=== PATIENT | female | born 1985 | race Caucasian/White ===

== ENCOUNTER → 2016-11-21 | Outpatient (CLI) | payer OTHER ==
--- NOTE | 2016-11-21 10:40 | REP ---
Clinical: Left lower quadrant pain . Technique: Transabdominal pelvic ultrasound followed by transvaginal examination for better evaluation of the endometrium and adnexa with color Doppler evaluation of the ovaries. Findings: Bladder is unremarkable and measures 7.6 x 3.9 x 6.0 cm . Anteverted septated uterus measures 9.1 x 4.4 x 6.9 cm. The right endometrial complex measures 7 mm thickness while the left endometrial complex measures 11.1 mm thickness. No discrete uterine or endometrial abnormalities are appreciated. Bilateral ovaries are normal in appearance and vascularity without evidence for torsion. Right ovary measures 1.5 x 1.6 x 2.1 cm ; R I = 0.53 . Left ovary measures 3.6 x 2.1 x 2.4 cm ; R I = 0.68 . No pelvic fluid or adnexal mass lesion . Impression: 1. Findings suggesting and otherwise normal septated uterus. 2. Normal bilateral ovaries without torsion. Signed by Clarence Garber MD 11/21/2016 10:32 A
== END ==
LOC: M RAD 09:49
PROVIDERS: ATTEND Nurse Practitioner Women's Health
DX: R10.32 Left lower quadrant pain (principal); N92.1 Excessive and frequent menstruation with irregular cycle

== ENCOUNTER → 2017-01-09 | Day surgery (SDC) | payer OTHER ==
[~2017-01-09] VITALS: Ht 162.6 cm; Wt 123.8 kg
[~2017-01-09] MED LIST: DESFLURANE 240 ML INHALANT As Ordered ONE; IBUPROFEN 600 MG TAB As Ordered ONE; IBUPROFEN 600 MG TAB PO PRN; LIDOCAINE 2% INJ 100 MG/5 ML SDV (FOR ANES.) As Ordered ONE; LOW-TAB2 PO; LR 1,000 ML IV SCH; MIDAZOLAM INJ 2 MG/2 ML VIAL (J2250) As Ordered ONE; ONDANSETRON 4MG/2ML VIAL (J2405) As Ordered ONE; ONDANSETRON 4MG/2ML VIAL (J2405) IV PRN; PROPOFOL 200 MG/20 ML VIAL As Ordered ONE; ROCURONIUM BROMIDE 50 MG/5 ML VIAL As Ordered ONE; SUCCINYLCHOLINE 100 MG/5 ML SYRINGE (J0330) As Ordered ONE; dexameTHASONE 4 MG/ML 1ML VIAL (J1100) As Ordered ONE; fentaNYL 100 MCG/2 ML INJECTION (J3010) As Ordered ONE
[2017-01-09 07:02] LABS: CONTROL LINE UCG INT CTR LINE PRESENT
[2017-01-09] MEDS: fentaNYL 100 MCG/2 ML INJECTION (J3010) IV PRN ×2 (09:03→09:19)
[2017-01-09 11:15] VITALS: BP 171/89
--- NOTE | 2017-01-09 11:36 | RO ---
DATE OF PROCEDURE: 01/09/2017 PREPROCEDURE DIAGNOSES: Menorrhagia, dysmenorrhea. POSTPROCEDURE DIAGNOSES: Menorrhagia, dysmenorrhea, with overgrowth on the left side of her septum which was more than expected as well as her uterine septum which was considerably more than expected. PROCEEDURE: Patient had a dilation and curettage (D and C), hysteroscopy, MyoSure partial septoplasty and resection of that overgrowth, we were not able to do the planned endometrial ablation. SURGEON: Dr. Susan Lopez CREDIT VERIFICATION CLERK: ANESTHESIA: General. ESTIMATED BLOOD LOSS: BRIEF DESCRIPTION OF PROCEDURE AND FINDINGS: Anne-Marie was brought to the operating room where general anesthesia was induced and she was prepped, draped and positioned in the usual sterile fashion. The cervix grasped with single tooth tenaculum. This uterus would be accessible by laparoscopic assisted vaginal hysterectomy (LAVH) but not by straight total vaginal hysterectomy (TVH) I do not believe. Cervix was carefully sounded and dilated. We got a couple different measurements on the sound but eventually had a cavity length of 10 with cervical length of 5 consistent with the operative check. I then placed a scope and the septum which had been identified preoperatively by sonogram was much more prominent. There was a full duplication of the cavity with a large thick vascular mid cavity septum but also for the patient's left side, there was what appears to be hyperplasia of the endometrium. She did have a negative preoperative biopsy before this planned ablation but looking at these cells, I could not be sure that we had sampled those preoperatively because of the marked septum. We switched out to the MyoSure and went ahead and directly sampled on the patient's left side but also undertook septoplasty. We were able to get a large amount of the septum down but we were not able to get enough of it down to create enough of a cavity length to accommodate endometrial ablation today. As noted in the pictures, the actual each side from the septum was narrow enough that the MyoSure itself was a snug fit. Initially, we were able to get some decent documentation of this fibrous septum with endometrium going lushly especially on the left side of it and clearly far more normal appearing endometrium on the right side which was the initial course of the dilator. Following the partial septoplasty and the endometrial sampling, we elected to stop the procedure and cancel the initially planned ablation due to these findings and the altered circumstances. Patient's companions that she brought today were notified. The procedure was ended. She tolerated the procedure well. She was recovering in the recovery room in good condition. EDEN
== END | disposition home or self-care (01) ==
LOC: M SDC 06:26
PROVIDERS: ATTEND Obstetrics & Gynecology
DX: N92.0 Excessive and frequent menstruation with regular cycle (principal); N94.6 Dysmenorrhea, unspecified; N85.01 Benign endometrial hyperplasia; F41.9 Anxiety disorder, unspecified; Z79.899 Other long term (current) drug therapy
CPT/HCPCS: 58558; 58560; 84703; 88305; J0330; J1100; J2250; J2405; J3010

== ENCOUNTER 2017-02-27 09:43 | Day surgery (SDC) | payer OTHER ==
[2017-02-27] VITALS (7 sets, daily range): BP systolic 133–175; BP diastolic 69–84
[~2017-02-27] VITALS: Ht 162.6 cm; Wt 124.7 kg
[~2017-02-27 09:43] MED LIST changes: -DESFLURANE 240 ML INHALANT As Ordered ONE; -IBUPROFEN 600 MG TAB As Ordered ONE; -IBUPROFEN 600 MG TAB PO PRN; -LIDOCAINE 2% INJ 100 MG/5 ML SDV (FOR ANES.) As Ordered ONE; -LR 1,000 ML IV SCH; -MIDAZOLAM INJ 2 MG/2 ML VIAL (J2250) As Ordered ONE; -ONDANSETRON 4MG/2ML VIAL (J2405) As Ordered ONE; -ONDANSETRON 4MG/2ML VIAL (J2405) IV PRN; -PROPOFOL 200 MG/20 ML VIAL As Ordered ONE; -ROCURONIUM BROMIDE 50 MG/5 ML VIAL As Ordered ONE; -SUCCINYLCHOLINE 100 MG/5 ML SYRINGE (J0330) As Ordered ONE; -dexameTHASONE 4 MG/ML 1ML VIAL (J1100) As Ordered ONE; -fentaNYL 100 MCG/2 ML INJECTION (J3010) As Ordered ONE
[2017-02-27] MEDS ORDERED: LR 1,000 ML IV ONE (10:00)
[2017-02-27] MEDS ORDERED: LR 1,000 ML IV SCH ×3 (10:15→15:30)
[2017-02-27] MEDS ORDERED: IBUP-1022 PO (10:15)
[2017-02-27 10:17] LABS: CONTROL LINE UCG INT CTR LINE PRESENT
[2017-02-27] MEDS ORDERED: MIDAZOLAM INJ 2 MG/2 ML VIAL (J2250) As Ordered ONE (10:25)
[2017-02-27] MEDS ORDERED: fentaNYL 100 MCG/2 ML INJECTION (J3010) As Ordered ONE ×3 (10:25→14:21)
[2017-02-27 10:42] LABS: MEAN CORPUSCULAR HEMOGLOBIN 23.5 pg (27.0-33.0); MEAN CORPUSCULAR HGB CONC 31.2 g/dl (32.0-36.5); MEAN CORPUSCULAR VOLUME 75.5 fl (80.0-96.0); RED CELL DISTRIBUTION WIDTH 14.4 % (11.5-14.5); WHITE BLOOD COUNT 10.2 K/mm3 (4.0-10.0)
[2017-02-27] MEDS ORDERED: dexameTHASONE 4 MG/ML 1ML VIAL (J1100) As Ordered ONE (11:55)
[2017-02-27] MEDS ORDERED: KETOROLAC 60 MG/2 ML VIAL (J1885) As Ordered ONE (11:55)
[2017-02-27] MEDS ORDERED: PROPOFOL 200 MG/20 ML VIAL As Ordered ONE (11:56)
[2017-02-27] MEDS ORDERED: NEOSTIGMINE 1MG/ML 5 ML SYRINGE (J2710) As Ordered ONE (11:56)
[2017-02-27] MEDS ORDERED: ONDANSETRON 4MG/2ML VIAL (J2405) As Ordered ONE (11:56)
[2017-02-27] MEDS ORDERED: ROCURONIUM BROMIDE 50 MG/5 ML VIAL/SYRINGE As Ordered ONE (11:56)
[2017-02-27] MEDS ORDERED: LIDOCAINE 2% INJ 100 MG/5 ML SDV (FOR ANES.) As Ordered ONE (11:56)
[2017-02-27] MEDS ORDERED: GLYCOPYRROLATE INJ 0.2 MG/ML 2 ML VIAL As Ordered ONE (11:56)
[2017-02-27] MEDS ORDERED: HYDROmorphone HCL 2 MG/ML 1ML VIAL (J1170) As Ordered ONE (12:23)
[2017-02-27] MEDS ORDERED: MORPHINE 1MG/ML IN 0.9% NACL 100ML IV BAG As Ordered ONE (14:23)
[2017-02-27] MEDS ORDERED: NALBUPHINE HCL 10 MG/ML AMP (J2300) IV PRN (15:30)
[2017-02-27] MEDS ORDERED: IBUPROFEN 600 MG TAB PO PRN (15:30)
[2017-02-27] MEDS ORDERED: MEPERIDINE INJ 25 MG/ML VIAL (J2175) IV PRN (15:30)
[2017-02-27] MEDS ORDERED: EPIDURAL/PCA KEYS XX PRN (15:30)
[2017-02-27] MEDS ORDERED: fentaNYL 100 MCG/2 ML INJECTION (J3010) IV PRN (15:30)
[2017-02-27] MEDS ORDERED: NALOXONE INJ 0.4 MG/1 ML VIAL (J2310) IV PRN (15:30)
[2017-02-27] MEDS ORDERED: PERCOCET 5MG/325MG TAB PO PRN (15:30)
[2017-02-27] MEDS ORDERED: MORPHINE 1MG/ML IN 0.9% NACL 100ML IV BAG IV PRN (15:30)
[2017-02-27] MEDS ORDERED: METOCLOPRAMIDE INJ 10MG/2ML VIAL (J2765) IV PRN (15:30)
[2017-02-27] MEDS ORDERED: ONDANSETRON 4MG/2ML VIAL (J2405) IV PRN (15:30)
[2017-02-27] MEDS ORDERED: diphenhydrAMINE INJ 50MG/ML VIAL (J1200) IV PRN (15:30)
--- NOTE | 2017-02-27 21:36 | RO ---
DATE OF PROCEDURE: 02/27/2017 PREOPERATIVE DIAGNOSIS: Bleeding, pain, failed ablation attempt with bicornuate uterus. POSTOPERATIVE DIAGNOSIS: Bleeding, pain, failed ablation attempt with bicornuate uterus. Minor adhesions descending colon. OPERATIVE PROCEDURE: Laparoscopic assisted vaginal hysterectomy with bilateral salpingectomy. The patient retains her ovaries. We also had incidental removal of cystic paratubal cyst and incidental lyses of adhesions. SURGEON: Susan Lopez MD APIARIST: Christiane Hart ANESTHESIA: General endotracheal anesthesia. BRIEF DESCRIPTION OF PROCEDURE AND FINDINGS: Anne-Marie was brought to the operating room where sufficient general endotracheal anesthesia was induced and she was prepped, draped and positioned in the usual sterile fashion. A weighted speculum placed, the uterine manipulator placed. This went readily into the right horn of the uterus which is kind of expected after her hysteroscopy and of course the Sánchez with the ability to back fill was placed. We then turned our attention to abdomen where a transverse semilunar incision was made below the umbilicus with sharp and blunt dissection continued to the subcutaneous tissue to the level of the rectus fascia which was transversely incised under direct visualization and secured with a #0 Vicryl retention suture. Then, the peritoneum was entered under direct visualization and the Jaclyn cannula placed again in an open laparoscopic technique. CO2 insufflation was then begun. After adequate CO2 insufflation, the peritoneal cavity was visualized. There were normal shiny peritoneal surfaces throughout. There was no excrescence, ascites, nor exudate. There were adhesions of the descending colon. These initially obstructed our view of the left horn of the uterus and of the left ovary and tube. We had the operative scope. We were able to bring down a lot of these adhesions with the Enseal and visualize both tubes and ovaries and there was a paratubal cyst on the left side and this was removed with the procedure. With the patient's habitus even with Trendelenburg we had difficulty keeping the tubes well away from the intestine, so a 5 mm right-sided port was placed to elevate the tubes and facilitate removal of the tubes in this patient who had a preoperative diagnosis already of endometrial hyperplasia so we really wanted to remove the tubes for her, especially with that paratubal cyst. So, we used a grasper through the 5 mm port to elevate the tubes and keep it safe from the intestine and then carefully worked the Enseal to free the tubes on the left and right side and to free the utero-ovarian suspensory ligaments and then the round ligaments in the left and right side and to come through the superior aspect of the broad ligament. We then stopped the dissection from above and removed those instruments and went below. The cervix was grasped with two single tooth tenacula, circumferentially incised around the base and the cardinal ligaments were isolated, clamped with the Newman clamps, which were used throughout, transected and then sutured using #0 Vicryl suture which was used throughout this portion of the case. We then clamped, transected and ligated the uterosacrals which were held for later resecuring in this 31-year-old patient and with the posterior reflection open we continued the anterior dissection to protect the bladder, isolated the uterine vasculature and clamped, transected and ligated the uterine vasculature in sequential fashion along the lateral aspect of the uterus. This bicornuate uterus is fairly broad and heart-shaped and so when we had reached about two-thirds to three-quarters of the way up the uterus, it was starting to get broad and difficult to visualize the vascular pedicles, so we ahead and transected the cervix, incising longitudinally so that we could push half of the uterus back up a little bit so we could shift the uterus over and see the vascular pedicle well. This facilitated visualization and we were able to go up the right side of the uterus which was not the side that had the hyperplastic changes and of course it all was in the vagina, so not an issue in that regard. Having manipulated the uterus in this fashion, we were able to complete the dissection through the uterine vasculature and deliver the uterus with the attached fallopian tubes. Again, the ovaries remained. We examined the pedicles visually and had good hemostasis throughout. Angle stitches of #0 Vicryl were taken with good hemostasis achieved. Of course, the uterosacrals were resecured to the cuff and the cuff closed with a running lock stitch of #0 Vicryl with good approximation and hemostasis achieved. Given that we had had good visualization we were able to see that we had good results. We did not need to go back up laparoscopically so having closed the cuff we went ahead and removed the rest of the laparoscopic instrumentation and closed those wounds with #0 Vicryl retention sutures at the umbilicus were used to close the fascial wound for that 10 mm port and then the 5 mm and 10 mm skin sites were closed with #3-0 Vicryl in a subcuticular stitch and dry sterile dressings were then applied. Estimated blood loss for the procedure about 100 mL. Fluid replacement was crystalloid. Complications: None. CONDITION AND DISPOSITION: Anne-Marie tolerated the procedure well and was recovering in the recovery room in good condition.
[2017-02-28] VITALS: BP 150/70
[2017-02-28 04:00] VITALS: BP 142/67
[2017-02-28] MEDS ORDERED: NORCO, ANEXSIA 5/325MG TABLET (HYDROcodone/ACETAMINOPHEN) PO PRN (06:00)
[2017-02-28 07:34] LABS: MEAN CORPUSCULAR HEMOGLOBIN 23.5 pg (27.0-33.0); MEAN CORPUSCULAR HGB CONC 31.2 g/dl (32.0-36.5); MEAN CORPUSCULAR VOLUME 75.5 fl (80.0-96.0); RED CELL DISTRIBUTION WIDTH 14.4 % (11.5-14.5); WHITE BLOOD COUNT 13.4 K/mm3 (4.0-10.0)
[2017-02-28 08:00] VITALS: BP 146/80
[2017-02-28] MEDS ORDERED: NORC1TAB4 PO (08:52)
== END 2017-02-28 09:25 | disposition home or self-care (01) ==
LOC: M SDC 09:43 → M PED 15:35 → M SDC 02-28 09:25
PROVIDERS: ATTEND Obstetrics & Gynecology
DX: R10.2 Pelvic and perineal pain (principal); N92.0 Excessive and frequent menstruation with regular cycle; N85.00 Endometrial hyperplasia, unspecified; F41.9 Anxiety disorder, unspecified; F32.9 Major depressive disorder, single episode, unspecified; G43.909 Migraine, unspecified, not intractable, without status migrainosus; E66.9 Obesity, unspecified; Z79.3 Long term (current) use of hormonal contraceptives
CPT/HCPCS: 36415; 58552; 84703; 85027; 86850; 86900; 86901; 88309; J0690; J1100; J1170; J1885; J2250; J2405; J2710; J3010